=== PATIENT | female | born 1985 | race Caucasian/White ===

== ENCOUNTER → 2022-07-31 14:56 | Outpatient (REF) | payer BC, SELFPAY ==
--- NOTE | 2022-07-31 15:02 | CA_ITS ---
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 Normal LV systolic and diastolic function 2. Left atrium is measured to be moderately dilated 3. Normal cardiac valvular Dopplers 4. Normal RV systolic pressure 5. No pericardial effusion 6. Consider saline contrast study Findings Left Ventricle Normal left ventricular size, thickness, and systolic function. The visually estimated ejection fraction is between 60-65%. Diastolic function is normal for age. Peak GLS is -20.3%, within normal limits. Right Ventricle Normal right ventricular cavity size and systolic function. Atria The left atrium is moderately dilated. There is an interatrial septal aneurysm seen bowing to the right. There is a mobile atrial septum noted. Interatrial shunt cannot be excluded. The right atrium is normal in size. Aortic Valve Normal aortic valve structure and function. There is no aortic valve stenosis. There is no aortic valve regurgitation. Mitral Valve Normal mitral valve structure and function. There is trace mitral valve regurgitation. There is no mitral valve stenosis. Pulmonic Valve The pulmonic valve is likely normal. There is trace pulmonic valve regurgitation. Tricuspid Valve Normal tricuspid valve structure. There is trace tricuspid valve regurgitation. The right ventricular systolic pressure is normal. The right ventricular systolic pressure is 21 mmHg. Normal right atrial pressure. There is no evidence of pulmonary hypertension. Great Vessels All visible segments of the aorta are normal in size. The pulmonary artery was not well visualized. Venous The inferior vena cava is normal in size and collapses greater than 50% with inspiration. Pericardium/Pleural There is no evidence of pericardial effusion. Prior Study Comparison No prior study available for comparison. Recommendations, Care & Conclusions Recommend contrast study to evaluate intracardiac shunting. Measurements 2D Linear Measurements IVSd: 0.65 0.6-0.9/0.6-1.0 cm LVIDd: 4.71 3.9-5.3/4.2-5.9 cm LVIDd Index: 2.59 2.4-3.2/2.2-3.1 cm/m2 LVIDs: 3.34 2.0-3.6 cm LVPWd: 0.80 0.7-1.1 cm LA Diam: 3.20 2.7-3.8/3.0-4.0 cm LAIDs Index: 1.76 1.5-2.3 cm/m2 LV Mass: 134.55 67-162/88-224 g LV Mass Index: 73.93 43-95/49-115 g/m2 LVOT Diam: 2.20 3.0+(-)1.3 cm 2D Systolic Function EF 4C: 57.30 >55% EF 2C: 67.00 >55% EF BiP: 61.40 >55% Mitral Valve MV Pk E: 0.76 MV PK A: 0.50 MV Decel Time: 185.00 E/A: 1.50 E'Lateral: 15.30 E'Medial: 9.46 E/E' Med: 8.00 E/E' Lat: 5.00 PHT: 54.00 MVA PHT: 4.07 Decel Lander: 4.10 Aortic Valve AoV Pk Rodo: 1.52 AoV Mn Rodo: 1.06 AoV VTI: 0.30 AoV Pk Grad: 9.00 Aov Mn Grad: 5.00 JANAE Cont.VTI: 3.15 LVOT LVOT Pk Rodo: 1.30 LVOT Mn Rodo: 0.87 LVOT VTI: 0.25 LVOT Pk Grad: 7.00 LVOT Mn Grad: 3.00 LVOT Diam: 2.20 LVOT Area: 3.80 Diastolic Function MV Pk E: 0.76 MV Pk A: 0.50 E/A: 1.50 E'Medial: 9.46 E/E' Med: 8.00 E' Laterial: 15.30 E/E' Lat: 5.00 Right Ventricle TAPSE (mm): 29.30 TVS' Rodo: 16.00 Tricuspid Valve TR Pk Rodo: 2.13 TR Pk Grad: 18.00 RA Press: 3.00 RVSP: 21.00 Great Vessels Aorta Sinus of Valsalva: 3.27 2.0-3.[address] Ridge: 2.52 1.7-3.4 cm Ao Asc: 2.80 2.1-3.4 cm Ao Arch: 2.80 Updated in Other Vendor System with Status of Final Markus Fernandez MD electronically signed on 07/31/2022 4:20:07 PM with status of Final
== END ==
LOC: HO.CARD 14:56
PROVIDERS: PCP Internal Medicine; Visit Provider Obstetrics & Gynecology
DX: I25.3 Aneurysm of heart (principal)
CPT/HCPCS: 93306; 93356